=== PATIENT | female | born 1940 | race Caucasian/White ===

== ENCOUNTER → 2021-04-16 | Outpatient (CLI) | payer OTHER | LOC: KOH-I 13:15 | DX: M25.572 Pain in left ankle and joints of left foot (principal); M25.571 Pain in right ankle and joints of right foot; M79.672 Pain in left foot; M79.671 Pain in right foot; S92.354A Nondisplaced fracture of fifth metatarsal bone, right foot, initial encounter for closed fracture | CPT/HCPCS: 73610; 73630 ==

== ENCOUNTER → 2021-04-19 | Outpatient (CLI) | payer OTHER | LOC: MRI 12:31 | DX: M79.9 Soft tissue disorder, unspecified (principal) | CPT/HCPCS: 36415; 73723; 82565; 84520; A9577 ==

== ENCOUNTER → 2021-04-25 | Outpatient (CLI) | payer OTHER | LOC: KOH-I 14:40 | DX: R22.41 Localized swelling, mass and lump, right lower limb (principal); I80.01 Phlebitis and thrombophlebitis of superficial vessels of right lower extremity | CPT/HCPCS: 93971 ==